=== PATIENT | female | born 1945 | race Caucasian/White ===

== ENCOUNTER 2016-12-12 05:53 | Inpatient (IN) | payer MEDICARE ==
--- NOTE | 2016-12-04 15:50 | HP ---
HISTORY AND PHYSICAL: DATE OF ADMISSION: 12/12/16 She will be entering [facility] on 12/12/16 for a left total hip replacement. CHIEF COMPLAINT: Left hip region pain. HISTORY OF PRESENT ILLNESS: The patient has had progressive symptoms from arthritis of her left hip and the left hip severe arthritis has been no longer responsive to nonoperative care and a left total hip replacement has been recommended. In the office, I reviewed the goals, risks and complications of the surgical care with her and her questions were answered. PAST SURGICAL HISTORY: Gallbladder removal and a partial hysterectomy. She has had 2 cataract surgeries, the last in 2008. ALLERGIES: No drug allergies. SOCIAL HISTORY: She has never been a smoker. She does not drink. No bleeding tendencies. No past history of heart attack or chest pain. The patient is able to walk up 2 flights of stairs without chest pain and without shortness of breath. The patient did have pneumonia last year. No chronic bronchitis. No kidney problems. No past cancers and no liver problems. Currently antalgic gait on the left. PHYSICAL EXAMINATION VITAL SIGNS: Temperature is 97.9, blood pressure 122/78. Weight 113 and height 65 inches. HEENT: Head is NC/AT. LUNGS: Clear bilaterally. HEART: Regular. S1, S2 normal. No murmurs or gallops. ABDOMEN: Soft and nontender. There is no organomegaly. EXTREMITIES: The left hip examination shows painful range of movement and neurovascular left foot is intact. The radiographs show severe arthritis of the left hip with onxq-tq-pyul sclerosis, osteophyte formation, and cyst formation. NEUROLOGIC: The cranial nerves are grossly intact. IMPRESSION: Severe arthritis of the left hip. PLAN: Left total hip replacement. [id number]/[facility] #: [id number] [facility]
[~2016-12-12 05:53] MED LIST: Buffered Lidocaine 0.9% SYRIN* 5 ML/SYR SYRINGE INTRADERM ONE
[2016-12-12] MEDS ORDERED: ceFAZolin 2 GM PREMIX (*) 50 ML IVPB ONE (05:55)
[2016-12-12] MEDS ORDERED: Buffered Lidocaine 0.9% SYRIN* 5 ML/SYR SYRINGE ONE (05:55)
[2016-12-12] MEDS ORDERED: fentaNYL* 50 MCG/ML 2 ML VIAL (100 MCG VIAL) ONE (07:31)
[2016-12-12] MEDS ORDERED: Midazolam* 1 MG/ML 5 ML VIAL (5 MG) ONE (07:31)
[2016-12-12] MEDS ORDERED: Morphine PF AMP (0.5MG/ML)* 5 MG/10 ML AMP ONE (07:32)
[2016-12-12] MEDS ORDERED: Scopolamine 1.5 mg* PATCH ONE (07:35)
[2016-12-12] MEDS ORDERED: diPHENhydraMINE IV* 50 MG/ML 1 ml VIAL (BENADRYL) IV PRN (09:36)
[2016-12-12] MEDS ORDERED: Nalbuphine* 20 MG/ML 1 ML VIAL IV PRN (09:36)
[2016-12-12] MEDS ORDERED: Ondansetron INJ* 2 MG/ML VIAL IV PRN (09:37)
[2016-12-12] MEDS ORDERED: Naloxone* 0.4 MG/ML 1 ML VIAL IV PRN (09:37)
[2016-12-12] MEDS ORDERED: Metoclopramide IV* 5 MG/ML 2 ML VIAL IV PRN (09:37)
[2016-12-12] MEDS ORDERED: Acetaminophen TAB* 325 MG PO PRN (09:37)
[2016-12-12] MEDS ORDERED: oxyCODONE/Acetamin 5/325 MG* TAB PO PRN (09:37)
[2016-12-12] MEDS ORDERED: Scopolomine PATCH Remove* 1 NOTE MISC PATCH OFF PRN (09:37)
[2016-12-12] MEDS ORDERED: PROCHLORPERAZINE INJ 5 MG/ML 2 ML VIAL IV PRN (09:37)
[2016-12-12] MEDS ORDERED: Ondansetron INJ* 2 MG/ML VIAL ONE (10:04)
[2016-12-12] MEDS ORDERED: Propofol* 10 MG/ML 20 ML BTL IV PUSH ONE (10:04)
[2016-12-12] MEDS ORDERED: Bisacodyl SUPP* 10 MG SUPP PR PRN (10:18)
[2016-12-12] MEDS ORDERED: diPHENhydraMINE PO* 25 MG PO PRN (10:18)
[2016-12-12] MEDS ORDERED: Magnesium Hydroxide LIQ* 30 ML UDC PO PRN (10:18)
[2016-12-12] MEDS ORDERED: ceFAZolin 1 GM VIAL(*) 1 GM in NS 0.9% 50 ML* 50 ML IVPB SCH (11:00)
--- NOTE | 2016-12-12 11:28 | RAD ---
INDICATION: Status post total left hip replacement surgery. COMPARISON: Comparison is made with a prior x-ray study of the left hip from April 15, 2016. TECHNIQUE: An AP view of the pelvis was obtained. FINDINGS: The patient is status post total left hip replacement surgery. The bones and prostheses are in normal alignment. There is air in the surrounding soft tissues and several surgical oleksandr present laterally consistent with the patient's recent surgery. The patient is status post remote total right hip replacement surgery. IMPRESSION: STATUS POST TOTAL LEFT HIP REPLACEMENT SURGERY.
[2016-12-12] MEDS ORDERED: PROCHLORPERAZINE INJ 5 MG/ML 2 ML VIAL ONE (11:38)
[2016-12-12] MEDS ORDERED: Glycopyrrolate IV* 0.2 MG/ML 1 ML VIAL ONE (13:31)
[2016-12-12 13:32] LABS: Albumin 3.7 g/dL (3.2-5.2); BUN/Creatinine Ratio 26.7 (8-20); EGFR African American 126.4 (>60); EGFR Non-African American 98.3 (>60); Globulin 2.4 g/dL (2-4); Magnesium 1.8 mg/dL (1.9-2.7); Phosphorus 3.1 mg/dL (2.5-5.0); Total Bilirubin 0.4 mg/dL (0.2-1.0); Total Protein 6.1 g/dL (6.4-8.9)
[2016-12-12 13:53] LABS: Potassium 2.7 mmol/L (3.5-5.0)
[2016-12-12 13:58] LABS: Hematocrit 37 % (35-47); Hemoglobin 12.3 g/dl (12.0-16.0)
[2016-12-12] MEDS ORDERED: Magnesium Sulfate 2 GM IV* 2 GM/50 ML BAG IVPB ONE (13:58)
[2016-12-12] MEDS: KCL 20 MEQ/100 ML IVPREMIX* 20 MEQ/100 ML BAG IV SCH ×3 (14:56→19:05)
[2016-12-12] MEDS: Cyclobenzaprine TAB* 10 MG PO SCH ×2 (16:53→22:04)
[2016-12-12] MEDS ORDERED: AMLODIPINE BESYLATE 10 MG PO SCH (17:00)
[2016-12-12] MEDS: ceFAZolin 1 GM in Dextrose (*) 1 GM/50 ML BAG IVPB SCH (17:42)
--- NOTE | 2016-12-12 18:07 | CONS ---
CC: Dr. Ernandez; Dr. Soriano * CONSULTATION REPORT: DATE OF CONSULT: 12/12/16 REASON FOR CONSULT: 1. Evaluation of bradycardia. 2. Hypertension. HISTORY OF PRESENT ILLNESS: Ms. Craven is a 71-year-old female patient that presented to the orthopedic services today for an elective left total hip replacement. I refer you to Dr. Soriano's H and P for further details. She has been plagued by left hip pain for some time, failing conservative therapy, she sought care with Dr. Soriano and it was felt that she would benefit from a total hip replacement, which she underwent today. Unfortunately, in the PACU, it was noted that she was having significant episodes of bradycardia associated with nausea and vomiting. She did have a scopolamine patch placed preoperatively and she has had it intraop. In addition to this, though, it is hard to tell if she is becoming bradycardic and then having nausea and vomiting or if she has been vasovagal. She had an episode in front of me and I talked to the patient. She denied having any chest pain, but she did state that she was feeling nausea and her heart rate was in the 30s. She denied having any feeling like she was going to faint. She denied having any lightheadedness. Denied having any syncope. She denied having any palpitations again or having any chest discomfort or chest pain or shortness of breath associated with these episodes. Because of the bradycardia, we were asked to evaluate in consult. PAST MEDICAL HISTORY: Significant for: 1. Hypertension. 2. Hyperlipidemia. PAST SURGICAL HISTORY: 1. She has had a laparoscopic cholecystectomy. 2. Cataract extraction. 3. Hysterectomy. 4. Right total hip replacement. MEDICATIONS: Her home meds according to her preop list include: 1. Tylenol 650 mg p.o. b.i.d. as needed. 2. Norvasc 10 mg daily. 3. Vitamin D 1000 units p.o. daily. 4. B12 1000 mcg p.o. daily. 5. Flexeril 10 mg p.o. t.i.d. 6. Diphenhydramine 50 mg p.o. at bedtime as needed. 7. Colace 1 capsule p.o. daily. 8. Dyazide 1 capsule p.o. daily. 9. Excedrin Headache 1 capsule daily. 10. Fish oil 1 capsule daily. 11. Advil 600 mg daily as needed. 12. Magnesium 250 mg p.o. daily. 13. Melatonin 10 mg p.o. at bedtime. 14. Potassium 595 mg p.o. daily. 15. Probiotic 1 capsule p.o. daily. 16. Red yeast rice 600 mg a day. 17. Gas-X 125 mg daily as needed. 18. Aspercreme 1 application topically every 6 hours. 19. Multivitamin 1 tablet a day. 20. Tramadol 1 to 2 tablets at bedtime as needed. ALLERGIES TO MEDICATIONS: Include no known drug allergies. FAMILY HISTORY: Her mother had a history of IBS and she also had a pacemaker placed. Her father's history was reviewed, noncontributory. She denied having any heart disease in her father or cerebrovascular disease. SOCIAL HISTORY: She does not smoke. She does not drink. Surrogate decision maker is her daughter, Ricarda. REVIEW OF SYSTEMS: There is no documented fever. She denies having any significant weight change. No double vision. There is no ear discharge. She denied having any rhinorrhea. No sore throat, no thyroid enlargement. Denies again having any chest pain. There is no orthopnea, no nocturnal dyspnea. She denies any abdominal pain. There was nausea and vomiting. No dysuria, no frequency. No loss of consciousness. No pruritus, and no skin ulcerations. Review of 14 systems completed, all others negative. PHYSICAL EXAM: Vital Signs: Blood pressure 148/82, pulse 92, respirations 14, O2 sat 97%, temperature 97.5. General: At this time, Mrs. Craven is a 71-year- old female patient. She is sitting in the PACU bed. She does not appear to be in any acute distress. She appears to be well nourished, well developed. HEENT : Head atraumatic. Eyes: Sclerae anicteric. Neck: Supple. Throat: Oral mucosa appears to be dry. No oropharyngeal erythema. Heart: Sounds, S1, S2. Regular rate and rhythm. No murmurs, rubs, or gallops. Lungs: Clear to auscultation. No wheezes, rales, or rhonchi. Abdomen: Soft, flat, nontender. Bowel sounds present. Extremities: Pulses 2+ throughout. She moves upper extremities with 5/5 strength. She cannot move the lower extremities as she is in a hip adductor pillow. Distal CSM checks are intact. Skin is intact with the exception that she has an incision to the left hip, which is covered with a dressing. It is clean, dry, and intact. DIAGNOSTIC STUDIES/LAB DATA: She had some postop labs. Her hemoglobin is 12.3 , hematocrit 37. Sodium 138, potassium 2.7, chloride 102, bicarb 29, BUN 16, creatinine of 0.60, glucose 155, calcium 9, mag 1.8, phos 3.1, total bilirubin 0.4, AST 22, ALT , alk phos 55. Albumin 3.7. She did have an EKG postop as well. It shows a sinus bradycardia, rate of 55. No ST elevations or T-wave inversions were noted. No signs of acute ischemia. She had an EKG about a week ago and the heart rate was 60 with a PVC at that point. Old medical records were reviewed. ASSESSMENT AND PLAN: Ms. Craven is a 71-year-old female patient coming into the orthopedic services today for an elective total hip replacement, we were asked to evaluate in consult. Recommendations at this point are: 1. Status post right total hip replacement, defer the management to Dr. Soriano and his team. 2. Bradycardia. Etiology is unclear. She does not appear to have a second- degree or third-degree AV block at this point. Appears to be sinus rolando. She does become nauseous I think with this or because she may be having vasovagal. She has a scopolamine patch which can increase vagal tone, so I did discontinue that. I would like to keep her on telemetry and continue to observe her, her blood pressure maintained. She does not pass out with these episodes. She does not have any chest pain. I will cycle her troponins. I would like to try to get an EKG when she has one of these episodes if possible and follow her closely. I do think she deserves the ICU and if she continues to have the episodes, we may need to consider low threshold for cardiology input, but for now it could just be related to anesthetics and medication related. Hopefully by holding these meds and as the anesthetic wears off, this does improve. We will monitor. 3. Hypokalemia and hypomagnesemia. I am going to replace her potassium and her mag. Try to get the potassium around 4 and try to get the mag up to 2. 4. Hypertension. I am going to hold her meds, particularly her Dyazide. We will hold some of the Norvasc and restart this when able. 5. Hyperlipidemia. We will restart the meds when able. 6. DVT prophylaxis: Defer to the primary team. 7. Fluids, electrolytes, nutrition. I would recommend a regular diet. 8. Code status. Full code. TIME SPENT: On consult was 60 minutes, greater than half the time was spent face- to-face with the patient obtaining my history and physical, other half the time spent going over the plan of care with the patient and implementing plan of care. I did discuss the plan of care with my attending, Dr. Lorenz, she is in agreement. RAHUL MENDIETA, BEULAH [id number]/[facility] #: [id number] MTDD
[2016-12-12] MEDS: Docusate CAP* 100 MG PO SCH (22:04)
[2016-12-12 23:14] LABS: Calcium 8.3 mg/dL (8.6-10.3); EGFR Non-African American 121.3 (>60); Magnesium 2.1 mg/dL (1.9-2.7); Potassium 3.9 mmol/L (3.5-5.0)
[2016-12-13] MEDS: ceFAZolin 1 GM in Dextrose (*) 1 GM/50 ML BAG IVPB SCH ×2 (00:32→09:08)
--- NOTE | 2016-12-13 01:04 | OP ---
CC: Dr. David Ernandez, [facility] * DATE OF OPERATION: 12/12/16 - ROOM #444 DATE OF : 43 SURGICAL CARE: Left hip. SURGEON: Rojelio Soriano MD ASSISTANTS: 1. JONNY Cosby, him assistant. 2. Cristiane Bautista, surgical scrub tech. ANESTHESIOLOGIST: Marlyn Roblero MD ANESTHESIA: Spinal with IV sedation. PRE-OP DIAGNOSIS: Severe arthritis of the left hip. POST-OP DIAGNOSIS: Severe arthritis of the left hip. OPERATIVE PROCEDURE: Left total hip replacement. INDICATIONS: Severe arthritis of the left hip that has been no longer responsive to nonoperative care and a left total hip replacement was recommended. COMPONENTS UTILIZED: Ángel Continuum cup was utilized 52-mm outer diameter with 1 screw, the liner was elevated and the elevation was placed posteriorly. The liner is for a 36-mm head. On the femoral side, standard M/L taper size 11 with a +0, 36- mm cobalt-chrome head. COMPLICATIONS: There were no complications. DRAINS: There were no drains. ESTIMATED BLOOD LOSS: 200 mL. REPLACEMENT: Crystalloid fluids. DESCRIPTION OF PROCEDURE: The patient was brought to the operating room. The patient was placed on the operating room table in the seated position for administration of spinal anesthetic, she returned to the supine position. A Clark catheter was inserted, she was placed in the right lateral position with a folded blanket under the right greater trochanter. The pelvis was secured over the ASIS and the sacrum using the hip positioner. Care was taken to seal, there was no pressure on the peroneal nerve on the downside right leg. The groin was sealed off. The left hip was given a preliminary chlorhexidine prep and then the final ChloraPrep from the left hip to the foot. After prepping, draping, and sealing off, we did our universal protocol time-out confirming Nona Herber and the plan for left total hip replacement. We all agreed and we proceeded. The left hip was approached with a slightly curving posterolateral skin incision, going from the greater trochanter distally for an inch and a half and curving a little bit proximally and posterior for 2-1/2 to 3 inches. Skin and subcu was divided and careful hemostasis checked and achieved throughout the case utilizing electrocautery. The deep fascia was opened in line with the skin incision, dividing the fascia beverly over the greater trochanter and then the fascia gluteus fili going proximally. A Charnley retractor was carefully inserted, the greater trochanter was identified and soft tissues were scrubbed posteriorly posterior to the greater trochanter. A blunt Hohmann retractor was placed under the gluteus medius and the piriformis and conjoint tendons were identified and carefully released from their piriformis fossa insertions, each was marked with a separate #2 Surgidac suture and this stitch also included the underlying capsular flap. Careful hemostasis was achieved during the careful posterior approach to the hip. The hip was dislocated without difficulty. There were large osteophytes posterior, superior, anteriorly on the acetabulum. A large medial osteophyte completely overgrew the fossa and this was excised with osteotomes, retractors were sharp Hohmann's anteriorly and posteriorly, blunt Hohmann's superiorly and inferiorly. Once the acetabulum was nicely exposed, we reamed 44 through 52 in 2 -mm increments. At 52, we had nice bleeding subchondral and cancellous bone. A 50 trial was very satisfactory. A 52 Continuum cup was impacted into position after cleaning the acetabulum several times with pulsed saline. The new cup was impacted in 45 degrees of abduction and approximately 20 degrees of anteversion with nice posture and tight fit. A single screw was placed superiorly and an elevator liner for a 36 head was placed posteriorly. I then removed the anterior osteophyte from the acetabulum and some anterior inferior osteophyte as well. The acetabulum was packed and on the femoral side, we used a canal finder, trochanteric reamer, broaching was done 5 through 11, at 11, we had a nice tight fit but for rotation and axial, a trial reduction was done with a +0 standard neck and negative push pull and good soft tissue tension. No tendency towards levering with IR and ER in extension. 90 degrees of flexion was allowed with abduction and internal rotation, approaching 30 to 40 degrees prior to dislocation. The femoral canal was cleaned times several with saline, suctioned out. The standard M/L taper size 11 was opened and inserted in 15 to 20 degrees of anteversion and the trunnion was cleaned and a +0 36-mm head was then applied and impacted carefully. The hip was reduced with nice soft tissue tension. The piriformis and conjoint tendons were reapproximated through 2 drill holes to the posterior superior greater trochanter. Prior to tightening this, we irrigated several times with saline and swabbed the soft tissues to discourage leaving debris with clean lap sponges. After obtaining careful hemostasis and cleansing, the piriformis and conjoint tendons tightened through 2 drill holes to the posterior superior greater trochanter. The fascia beverly reapproximated with interrupted #1 Polysorb in figure-of-8 fashion. The same with the fascia gluteus fili. The deep and superficial subcu closed with 0 and then 2-0 Polysorb and then oleksandr on the skin. The skin was closed with oleksandr. The skin was washed and dried and covered with Betadine-soaked release, followed by sterile gauze, an ABD pad, and then paper tape carefully applied. The patient was returned to the hospital bed and to the recovery room in stable and satisfactory condition, having tolerated the procedure very well. [id number]/[facility] #: [id number] MICKEY
[2016-12-13] MEDS ORDERED: Acetaminophen TAB* 325 MG PO PRN (01:38)
[2016-12-13] MEDS ORDERED: oxyCODONE/Acetamin 5/325 MG* TAB PO PRN (01:38)
[2016-12-13] MEDS ORDERED: Ondansetron INJ* 2 MG/ML VIAL IV PRN (01:38)
[2016-12-13] MEDS ORDERED: Cyanocobalamin TAB* 500 MCG PO SCH (04:30)
[2016-12-13] MEDS ORDERED: DYAZIDE PO SCH (04:30)
[2016-12-13] MEDS ORDERED: Cholecalciferol TAB* 1000 UNITS PO SCH (04:30)
[2016-12-13 05:15] LABS: Hematocrit 31 % (35-47); Hemoglobin 10.5 g/dl (12.0-16.0)
[2016-12-13 05:32] LABS: BUN/Creatinine Ratio 22.9 (8-20); Calcium 8.4 mg/dL (8.6-10.3); EGFR African American 163.5 (>60); EGFR Non-African American 127.1 (>60); Potassium 3.3 mmol/L (3.5-5.0)
[2016-12-13] MEDS ORDERED: Morphine INJ* 4 MG/ML 1 ML CARPUJECT IV PRN (06:00)
[2016-12-13] MEDS: Aspirin TAB* 325 MG PO SCH (07:55)
[2016-12-13] MEDS: oxyCODONE/Acetamin 5/325 MG* TAB PO PRN ×3 (07:55→19:32)
[2016-12-13] MEDS: Cyclobenzaprine TAB* 10 MG PO SCH ×3 (07:55→22:42)
[2016-12-13] MEDS: Docusate CAP* 100 MG PO SCH ×2 (07:55→19:32)
[2016-12-13] MEDS ORDERED: Influenza VAC *QUAD* 2017-18* 0.5 ML SYRINGE IM ONE (09:00)
--- NOTE | 2016-12-13 11:16 | PN ---
Progress Note - Progress Note Date of Service: 12/13/16 SOAP: Subjective: Pt resting comfortably in chair. No complaints today. Objective: Dressing clean and dry. Calves soft, nontender. DP pulses 2+. Sensation intact. Vital Signs: Temp Pulse Resp BP Pulse Ox 98.6 F 93 16 119/53 94 12/13/16 07:17 12/13/16 07:17 12/13/16 08:00 12/13/16 07:17 12/13/16 07:17 Laboratory Last Values Hgb 10.5 g/dl (12.0-16.0) L 12/13/16 04:36 Hct 31 % (35-47) L 12/13/16 04:36 Sodium 133 mmol/L (133-145) 12/13/16 04:36 Potassium 3.3 mmol/L (3.5-5.0) L 12/13/16 04:36 Chloride 99 mmol/L (101-111) L 12/13/16 04:36 Carbon Dioxide 32 mmol/L (22-32) 12/13/16 04:36 Anion Gap 2 mmol/L (2-11) 12/13/16 04:36 BUN 11 mg/dL (6-24) 12/13/16 04:36 Creatinine 0.48 mg/dL (0.51-0.95) L 12/13/16 04:36 Est GFR ( Amer) 163.5 (>60) 12/13/16 04:36 Est GFR (Non-Af Amer) 127.1 (>60) 12/13/16 04:36 BUN/Creatinine Ratio 22.9 (8-20) H 12/13/16 04:36 Glucose 111 mg/dL (70-100) H 12/13/16 04:36 Calcium 8.4 mg/dL (8.6-10.3) L 12/13/16 04:36 Phosphorus 3.1 mg/dL (2.5-5.0) 12/12/16 12:55 Magnesium 2.1 mg/dL (1.9-2.7) 12/12/16 22:50 Total Bilirubin 0.40 mg/dL (0.2-1.0) 12/12/16 12:55 AST 22 U/L (13-39) 12/12/16 12:55 ALT 16 U/L (7-52) 12/12/16 12:55 Alkaline Phosphatase 55 U/L (34-104) 12/12/16 12:55 Troponin I 0.00 ng/mL (<0.04) 12/12/16 16:20 Total Protein 6.1 g/dL (6.4-8.9) L 12/12/16 12:55 Albumin 3.7 g/dL (3.2-5.2) 12/12/16 12:55 Globulin 2.4 g/dL (2-4) 12/12/16 12:55 Albumin/Globulin Ratio 1.5 (1-3) 12/12/16 12:55 Assessment: 71yo female s/p left ELI POD#1 Plan: PT/OT - WBAT, Hip precautions Pain control ASA/SCDs for DVT prophylaxis
[2016-12-13] MEDS: Potassium Chlor TAB* 20 MEQ TAB.ER PO SCH ×2 (13:21→16:23)
--- NOTE | 2016-12-13 16:11 | PN ---
Subjective Date of Service: 12/13/16 Interval History: Patient seen and examined at bedside. Patient denies any further episodes of dizziness. Patient states she felt a little dizzy when she got up for the first time today but has now improved. On telemetry her rate has remained in the 80s. She had a 2-3 1-2 sec pauses. The patient states that she knows she has pauses. Pain controlled. Family History: Unchanged from Admission Social History: Unchanged from Admission Past Medical History: Unchanged from Admission Objective Active Medications: Acetaminophen (Tylenol Tab*) 650 mg PO Q4H PRN Aspirin (Aspirin Tab*) 325 mg PO DAILY ARNULFO Bisacodyl (Dulcolax Supp*) 10 mg MI DAILY PRN Cholecalciferol (Vitamin D Tab*) 1,000 units PO 0430 ARNULFO Cyanocobalamin (Vitamin B12 Tab*) 1,000 mcg PO 0430 ARNULFO Cyclobenzaprine HCl (Flexeril Tab*) 10 mg PO TID ARNULFO Diphenhydramine HCl (Benadryl Po*) 25 mg PO Q6H PRN Docusate Sodium (Colace Cap*) 100 mg PO BID ARNULFO Lactulose (Lactulose*) 30 ml PO Q6H PRN Magnesium Hydroxide (Milk Of Magnesia Liq*) 30 ml PO Q6H PRN Morphine Sulfate (Morphine Inj (Syringe)*) 2 mg IV Q2H PRN Ondansetron HCl (Zofran Inj*) 4 mg IV Q6H PRN Oxycodone/Acetaminophen (Percocet 5/325 Tab*) 1 tab PO Q3H PRN Oxycodone/Acetaminophen (Percocet 5/325 Tab*) 2 tab PO Q3H PRN Pharmacy Profile Note (Scopolomine Patch Remove*) 1 note PATCH OFF .AFTER 72 HOURS PRN Potassium Chloride (Klor Con Er Tab*) 20 meq PO Q4H [facility] Vital Signs 12/12/16 12/12/16 12/12/16 16:00 16:15 16:30 Temperature 98.5 F Pulse Rate 64 74 63 Respiratory 16 16 18 Rate Blood Pressure 138/67 145/67 132/67 (mmHg) O2 Sat by Pulse 99 99 99 Oximetry 12/12/16 12/12/16 12/12/16 16:45 17:00 17:03 Temperature Pulse Rate 63 81 Respiratory 23 21 Rate Blood Pressure 130/66 138/82 (mmHg) O2 Sat by Pulse 97 97 99 Oximetry 12/12/16 12/12/16 12/12/16 17:15 17:24 17:31 Temperature Pulse Rate 74 111 74 Respiratory 17 22 19 Rate Blood Pressure 144/75 147/86 143/71 (mmHg) O2 Sat by Pulse 97 97 97 Oximetry 12/12/16 12/12/16 12/12/16 17:45 18:00 18:15 Temperature Pulse Rate 68 69 70 Respiratory 24 20 16 Rate Blood Pressure 134/64 128/72 146/67 (mmHg) O2 Sat by Pulse 97 99 97 Oximetry 12/12/16 12/12/16 12/12/16 18:30 18:45 18:46 Temperature Pulse Rate 66 65 Respiratory 19 14 13 Rate Blood Pressure 130/72 141/67 (mmHg) O2 Sat by Pulse 98 98 Oximetry 12/12/16 12/12/16 12/12/16 19:00 19:15 19:30 Temperature Pulse Rate 79 69 69 Respiratory 14 14 16 Rate Blood Pressure 143/73 135/64 129/65 (mmHg) O2 Sat by Pulse 97 98 99 Oximetry 12/13/16 12/13/16 12/13/16 08:00 09:55 11:06 Temperature 98.1 F Pulse Rate 80 Respiratory 16 16 18 Rate Blood Pressure 107/53 (mmHg) O2 Sat by Pulse 95 Oximetry Oxygen Devices in Use Now: None Appearance: sitting up in bed, NAD Eyes: No Scleral Icterus, PERRLA Ears/Nose/Mouth/Throat: NL Teeth, Lips, Gums Neck: NL Appearance and Movements; NL JVP Respiratory: Symmetrical Chest Expansion and Respiratory Effort, Clear to Auscultation Cardiovascular: NL Sounds; No Murmurs; No JVD, RRR Abdominal: NL Sounds; No Tenderness; No Distention Extremities: No Edema Skin: - - Left hip dressing C/D/I Neurological: Alert and Oriented x 3 Lines/Tubes/Other Access: Clean, Dry and Intact Peripheral IV Nutrition: Taking PO's Result Diagrams: 12/13/16 04:36 12/13/16 04:36 Microbiology and Other Data: Microbiology 12/12/16 17:20 Nasal Screen MRSA (PCR)([facility]) - Final Nasal Mrsa Negative Assess/Plan/Problems-Billing Assessment: - Patient Problems (1) Status post left hip replacement Comment: Management per orthopedic surgery. Pain control. PT/OT. H/H stable. (2) Bradycardia Comment: Resolved; D/c telemetry (3) HTN (hypertension) Comment: Hold Norvasc and Dyazide until BP stabilizes (4) HLD (hyperlipidemia) Comment: Restart statin. (5) DVT prophylaxis Comment: ASA and SCDs (6) Full code status Status and Disposition: Inpatient for left hip replacement. Dispo per orthopedic surgery.
[2016-12-14 07:20] LABS: Hematocrit 29 % (35-47); Hemoglobin 9.7 g/dl (12.0-16.0)
[2016-12-14] MEDS ORDERED: HYDROcodone/ACETAMIN 5-325 MG* 1 TAB PO PRN (07:48)
[2016-12-14] MEDS: Docusate CAP* 100 MG PO SCH ×2 (08:11→22:54)
[2016-12-14] MEDS: Cyanocobalamin TAB* 500 MCG PO SCH (08:11)
[2016-12-14] MEDS: Cyclobenzaprine TAB* 10 MG PO SCH ×3 (08:11→22:54)
[2016-12-14] MEDS: Cholecalciferol TAB* 1000 UNITS PO SCH (08:13)
[2016-12-14] MEDS: Aspirin TAB* 325 MG PO SCH (08:13)
--- NOTE | 2016-12-14 08:31 | PN ---
Progress Note - Progress Note Date of Service: 12/14/16 SOAP: Subjective: patient resting comfortably; pain controlled with with current pain regimen Objective: Vital Signs Temp Pulse Resp BP Pulse Ox 98.7 F 83 16 164/67 94 12/14/16 03:27 12/14/16 03:27 12/14/16 08:11 12/14/16 03:27 12/14/16 03:55 Laboratory Last Values Hgb 9.7 g/dl (12.0-16.0) L 12/14/16 06:50 Hct 29 % (35-47) L 12/14/16 06:50 Sodium 133 mmol/L (133-145) 12/13/16 04:36 Potassium 3.3 mmol/L (3.5-5.0) L 12/13/16 04:36 Chloride 99 mmol/L (101-111) L 12/13/16 04:36 Carbon Dioxide 32 mmol/L (22-32) 12/13/16 04:36 Anion Gap 2 mmol/L (2-11) 12/13/16 04:36 BUN 11 mg/dL (6-24) 12/13/16 04:36 Creatinine 0.48 mg/dL (0.51-0.95) L 12/13/16 04:36 Est GFR ( Amer) 163.5 (>60) 12/13/16 04:36 Est GFR (Non-Af Amer) 127.1 (>60) 12/13/16 04:36 BUN/Creatinine Ratio 22.9 (8-20) H 12/13/16 04:36 Glucose 111 mg/dL (70-100) H 12/13/16 04:36 Calcium 8.4 mg/dL (8.6-10.3) L 12/13/16 04:36 Phosphorus 3.1 mg/dL (2.5-5.0) 12/12/16 12:55 Magnesium 2.0 mg/dL (1.9-2.7) 12/13/16 04:36 Total Bilirubin 0.40 mg/dL (0.2-1.0) 12/12/16 12:55 AST 22 U/L (13-39) 12/12/16 12:55 ALT 16 U/L (7-52) 12/12/16 12:55 Alkaline Phosphatase 55 U/L (34-104) 12/12/16 12:55 Troponin I 0.00 ng/mL (<0.04) 12/12/16 16:20 Total Protein 6.1 g/dL (6.4-8.9) L 12/12/16 12:55 Albumin 3.7 g/dL (3.2-5.2) 12/12/16 12:55 Globulin 2.4 g/dL (2-4) 12/12/16 12:55 Albumin/Globulin Ratio 1.5 (1-3) 12/12/16 12:55 incision: c/d; dressing changed PE: NVI Assessment: s/p left ELI; POD#2 Plan: 1) pt/ot- wbat 2) ASA/SCD'S for DVT prophyalxis 3) Medicine co-managing 4) likely home Sunday
[2016-12-14] MEDS: HYDROcodone/ACETAMIN 5-325 MG* 1 TAB PO PRN ×3 (09:25→18:42)
[2016-12-14 14:31] LABS: Calcium 8.8 mg/dL (8.6-10.3); EGFR Non-African American 121.3 (>60); Potassium 3.4 mmol/L (3.5-5.0)
[2016-12-14] MEDS ORDERED: Potassium Chlor TAB* 20 MEQ TAB.ER PO ONE (17:19)
--- NOTE | 2016-12-14 17:23 | PN ---
Subjective Date of Service: 12/14/16 Interval History: Patient seen this afternoon. Reports feeling well overall. Pain controlled. Had BM today. Good PO intake. No chest pain, SOB, dysuria. Family History: Unchanged from Admission Social History: Unchanged from Admission Past Medical History: Unchanged from Admission Objective Active Medications: Acetaminophen (Tylenol Tab*) 650 mg PO Q4H PRN PRN Reason: Pain and temp Hydrocodone Bitart/Acetaminophen ([place] 5-325 Tab*) 1 tab PO Q3H PRN PRN Reason: PAIN Last Admin: 12/14/16 13:13 Dose: 1 tab Hydrocodone Bitart/Acetaminophen ([place] 5-325 Tab*) 2 tab PO Q3H PRN PRN Reason: MORE SEVERE PAIN Aspirin (Aspirin Tab*) 325 mg PO DAILY [facility] Last Admin: 12/14/16 08:13 Dose: 325 mg Bisacodyl (Dulcolax Supp*) 10 mg [place] DAILY PRN PRN Reason: constipation Cholecalciferol (Vitamin D Tab*) 1,000 units PO 0900 [facility] Last Admin: 12/14/16 08:13 Dose: 1,000 units Cyanocobalamin (Vitamin B12 Tab*) 1,000 mcg PO 0900 [facility] Last Admin: 12/14/16 08:11 Dose: 1,000 mcg Cyclobenzaprine HCl (Flexeril Tab*) 10 mg PO TID [facility] Last Admin: 12/14/16 13:12 Dose: 10 mg Diphenhydramine HCl (Benadryl Po*) 25 mg PO Q6H PRN PRN Reason: itching Docusate Sodium (Colace Cap*) 100 mg PO BID [facility] Last Admin: 12/14/16 08:11 Dose: 100 mg Lactulose (Lactulose*) 30 ml PO Q6H PRN PRN Reason: constipation Magnesium Hydroxide (Milk Of Magnesia Liq*) 30 ml PO Q6H PRN PRN Reason: constipation Last Admin: 12/13/16 19:33 Dose: 30 ml Morphine Sulfate (Morphine Inj (Syringe)*) 2 mg IV Q2H PRN PRN Reason: SEVERE PAIN Ondansetron HCl (Zofran Inj*) 4 mg IV Q6H PRN PRN Reason: nausea Pharmacy Profile Note (Scopolomine Patch Remove*) 1 note PATCH OFF .AFTER 72 HOURS PRN PRN Reason: nausea Stop: 12/15/16 09:39 Last Admin: 12/12/16 14:23 Dose: 1 patch Vital Signs 12/13/16 12/13/16 12/13/16 18:21 18:35 18:41 Temperature 98.7 F 98.7 F Pulse Rate 87 87 Respiratory 14 16 16 Rate Blood Pressure 142/62 142/62 (mmHg) O2 Sat by Pulse 99 99 Oximetry 12/14/16 12/14/16 12/14/16 03:27 03:55 07:35 Temperature 98.7 F Pulse Rate 83 Respiratory 18 16 Rate Blood Pressure 164/67 (mmHg) O2 Sat by Pulse 94 94 95 Oximetry 12/14/16 12/14/16 12/14/16 10:11 11:25 11:50 Temperature 97.7 F Pulse Rate 99 Respiratory 16 16 18 Rate Blood Pressure 119/52 (mmHg) O2 Sat by Pulse 93 Oximetry 12/14/16 12/14/16 12/14/16 13:12 13:13 15:50 Temperature 98.0 F Pulse Rate 106 Respiratory 16 16 16 Rate Blood Pressure 133/62 (mmHg) O2 Sat by Pulse 97 Oximetry Oxygen Devices in Use Now: None Appearance: Elderly, F, sitting in chair in NAD Eyes: No Scleral Icterus Ears/Nose/Mouth/Throat: Mucous Membranes Moist Neck: NL Appearance and Movements; NL JVP Respiratory: Symmetrical Chest Expansion and Respiratory Effort, Clear to Auscultation Cardiovascular: NL Sounds; No Murmurs; No JVD, RRR Abdominal: NL Sounds; No Tenderness; No Distention Lymphatic: No Cervical Adenopathy Extremities: - - L hip with dressing in place, did not take down Skin: No Rash or Ulcers Neurological: Alert and Oriented x 3 Result Diagrams: 12/14/16 06:50 12/14/16 13:24 Microbiology and Other Data: Microbiology 12/12/16 17:20 Nasal Screen MRSA (PCR)([facility]LEY) - Final Nasal Mrsa Negative Assess/Plan/Problems-Billing Assessment: - Patient Problems (1) Status post left hip replacement Current Visit: Yes Comment: Management per orthopedic surgery. Pain control. PT/OT. H/H stable. (2) Bradycardia Current Visit: Yes Comment: Resolved (3) HTN (hypertension) Current Visit: Yes Comment: BPs in good range off of PO meds. Continue to hold Norvasc and Dyazide for now. (4) HLD (hyperlipidemia) Current Visit: Yes Status: Acute Code(s): E78.5 - HYPERLIPIDEMIA, UNSPECIFIED SNOMED Code(s): 02042723 Comment: Can resume red yeast rice on d/c (5) DVT prophylaxis Current Visit: Yes Comment: ASA and SCDs Status and Disposition: Inpatient for left hip replacement. Dispo per orthopedic surgery, seems like d/ c likely 12/15
[2016-12-15 07:00] LABS: Hematocrit 27 % (35-47); Hemoglobin 9.3 g/dl (12.0-16.0)
[2016-12-15] MEDS: Cyanocobalamin TAB* 500 MCG PO SCH (08:32)
[2016-12-15] MEDS: Docusate CAP* 100 MG PO SCH (08:33)
[2016-12-15] MEDS: Cholecalciferol TAB* 1000 UNITS PO SCH (08:33)
[2016-12-15] MEDS: Cyclobenzaprine TAB* 10 MG PO SCH ×2 (08:33→14:43)
[2016-12-15] MEDS: HYDROcodone/ACETAMIN 5-325 MG* 1 TAB PO PRN ×2 (08:33→14:45)
[2016-12-15] MEDS: Aspirin TAB* 325 MG PO SCH (08:34)
[2016-12-15] MEDS ORDERED: Triamterene/HCTZ 37.5-25 MG* CAP PO SCH (09:00)
--- NOTE | 2016-12-15 10:23 | PN ---
Subjective Date of Service: 12/15/16 Interval History: Patient seen this morning. Reports good pain control. Good PO intake. No new complaints. Family History: Unchanged from Admission Social History: Unchanged from Admission Past Medical History: Unchanged from Admission Objective Active Medications: Acetaminophen (Tylenol Tab*) 650 mg PO Q4H PRN PRN Reason: Pain and temp Hydrocodone Bitart/Acetaminophen ([place] 5-325 Tab*) 1 tab PO Q3H PRN PRN Reason: PAIN Last Admin: 12/15/16 08:33 Dose: 1 tab Hydrocodone Bitart/Acetaminophen ([place] 5-325 Tab*) 2 tab PO Q3H PRN PRN Reason: MORE SEVERE PAIN Aspirin (Aspirin Tab*) 325 mg PO DAILY [facility] Last Admin: 12/15/16 08:34 Dose: 325 mg Bisacodyl (Dulcolax Supp*) 10 mg [place] DAILY PRN PRN Reason: constipation Cholecalciferol (Vitamin D Tab*) 1,000 units PO 0900 [facility] Last Admin: 12/15/16 08:33 Dose: 1,000 units Cyanocobalamin (Vitamin B12 Tab*) 1,000 mcg PO 0900 [facility] Last Admin: 12/15/16 08:32 Dose: 1,000 mcg Cyclobenzaprine HCl (Flexeril Tab*) 10 mg PO TID [facility] Last Admin: 12/15/16 08:33 Dose: 10 mg Diphenhydramine HCl (Benadryl Po*) 25 mg PO Q6H PRN PRN Reason: itching Docusate Sodium (Colace Cap*) 100 mg PO BID [facility] Last Admin: 12/15/16 08:33 Dose: 100 mg Lactulose (Lactulose*) 30 ml PO Q6H PRN PRN Reason: constipation Last Admin: 12/15/16 08:34 Dose: 30 ml Magnesium Hydroxide (Milk Of Magnesia Liq*) 30 ml PO Q6H PRN PRN Reason: constipation Last Admin: 12/13/16 19:33 Dose: 30 ml Morphine Sulfate (Morphine Inj (Syringe)*) 2 mg IV Q2H PRN PRN Reason: SEVERE PAIN Ondansetron HCl (Zofran Inj*) 4 mg IV Q6H PRN PRN Reason: nausea Triamterene/HCTZ (Dyazide Cap*) 1 cap PO DAILY [facility] Last Admin: 12/15/16 09:19 Dose: 1 cap Vital Signs 12/14/16 12/14/16 12/14/16 11:25 11:50 13:12 Temperature 97.7 F Pulse Rate 99 Respiratory 16 18 16 Rate Blood Pressure 119/52 (mmHg) O2 Sat by Pulse 93 Oximetry 12/15/16 12/15/16 03:36 08:33 Temperature 98.8 F Pulse Rate 95 Respiratory 16 18 Rate Blood Pressure 140/75 (mmHg) O2 Sat by Pulse 97 Oximetry Oxygen Devices in Use Now: None Appearance: Elderly, F, laying in chair in NAD Eyes: No Scleral Icterus Ears/Nose/Mouth/Throat: Mucous Membranes Moist Neck: NL Appearance and Movements; NL JVP Respiratory: Symmetrical Chest Expansion and Respiratory Effort, Clear to Auscultation Cardiovascular: NL Sounds; No Murmurs; No JVD, - - HR high 90s Abdominal: NL Sounds; No Tenderness; No Distention Lymphatic: No Cervical Adenopathy Extremities: No Edema, - - L hip dressing c/d/i Skin: No Rash or Ulcers Neurological: Alert and Oriented x 3 Result Diagrams: 12/15/16 06:50 12/14/16 13:24 Assess/Plan/Problems-Billing Assessment: - Patient Problems (1) Status post left hip replacement Current Visit: Yes Comment: Management per orthopedic surgery. Pain control. PT/OT. H/H stable. (2) Bradycardia Current Visit: Yes Comment: Resolved (3) HTN (hypertension) Current Visit: Yes Comment: Restarted Dyazide this morning. Can resume Norvasc tomorrow (4) HLD (hyperlipidemia) Current Visit: Yes Status: Acute Code(s): E78.5 - HYPERLIPIDEMIA, UNSPECIFIED SNOMED Code(s): 70335300 Comment: Can resume red yeast rice on d/c (5) DVT prophylaxis Current Visit: Yes Comment: ASA and SCDs Status and Disposition: Inpatient for left hip replacement. Dispo per orthopedic surgery, seems likely d /c today
--- NOTE | 2016-12-15 10:30 | PN ---
Progress Note - Progress Note Date of Service: 12/15/16 SOAP: Subjective: 71 y/o female s/p L ELI by DR. Soriano. Patient eager for D/C, working well with PT, no complaints. Pain well controlled. Objective: General- Well appearing, NAD, AO MSK- L hip- dressing removed, oleksandr intact, inc c/d/i, no drainage noted, minimal ecchymosis around incision, non-tender to palpation, no edema. + DF/PF , neg homans, PT 2+ Vital Signs Temp 98.8 F 12/15/16 03:36 Pulse 95 12/15/16 03:36 Resp 18 12/15/16 08:33 BP 140/75 12/15/16 03:36 Pulse Ox 97 12/15/16 03:36 Intake & Output 12/14/16 12/15/16 12/15/16 18:59 06:59 18:59 Intake Total 2009 1400 535 Output Total 1300 1350 200 Balance 710 50 335 Intake: Oral 2009 1400 535 Output: Urine 1300 1350 200 Other: Estimated Void Medium Date of Last Bowel 12/14/16 Movement # Bowel Movements 0 Estimated Stool Amount Small # Voids 1 Assessment: Stable 71 y/o female s/p L ELI by DR. Soirano. Plan: - DVT prophylaxis- Aspirin 325mg daily - Continue PT/ OT exercises - FOllow up with DR. Soriano within 4 weeks - H&H stable - Active Medications Generic Name Dose Route Start Last Admin Trade Name Freq PRN Reason Stop Dose Admin Acetaminophen 650 mg 12/13/16 01:38 Tylenol Tab* PO Q4H PRN Pain and temp Hydrocodone Bitart/Acetaminophen 1 tab 12/14/16 07:47 12/15/16 08:33 [place] 5-325 Tab* PO 1 tab Q3H PRN Administration PAIN Hydrocodone Bitart/Acetaminophen 2 tab 12/14/16 07:48 [place] 5-325 Tab* PO Q3H PRN MORE SEVERE PAIN Aspirin 325 mg 12/13/16 09:00 12/15/16 08:34 Aspirin Tab* PO 325 mg DAILY ARNULFO Administration Bisacodyl 10 mg 12/12/16 10:18 Dulcolax Supp* [place] DAILY PRN constipation Cholecalciferol 1,000 units 12/14/16 09:00 12/15/16 08:33 Vitamin D Tab* PO 1,000 units 0900 ARNULFO Administration Cyanocobalamin 1,000 mcg 12/14/16 09:00 12/15/16 08:32 Vitamin B12 Tab* PO 1,000 mcg 0900 ARNULFO Administration Cyclobenzaprine HCl 10 mg 12/12/16 14:00 12/15/16 08:33 Flexeril Tab* PO 10 mg TID ARNULFO Administration Diphenhydramine HCl 25 mg 12/12/16 10:18 Benadryl Po* PO Q6H PRN itching Docusate Sodium 100 mg 12/12/16 21:00 12/15/16 08:33 Colace Cap* PO 100 mg BID ARNULFO Administration Lactulose 30 ml 12/12/16 10:18 12/15/16 08:34 Lactulose* PO 30 ml Q6H PRN Administration constipation Magnesium Hydroxide 30 ml 12/12/16 10:18 12/13/16 19:33 Milk Of Magnesia Liq* PO 30 ml Q6H PRN Administration constipation Morphine Sulfate 2 mg 12/13/16 06:00 Morphine Inj (Syringe)* IV Q2H PRN SEVERE PAIN Ondansetron HCl 4 mg 12/13/16 01:38 Zofran Inj* IV Q6H PRN nausea Triamterene/HCTZ 1 cap 12/15/16 09:00 12/15/16 09:19 Dyazide Cap* PO 1 cap DAILY ARNULFO Administration
[2016-12-15 11:57] VITALS: BP 115/66
--- NOTE | 2016-12-15 18:20 | DS ---
DISCHARGE SUMMARY: DATE OF ADMISSION: 12/12/16 DATE OF DISCHARGE: 12/15/16 ATTENDING PHYSICIAN: Rojelio Soriano MD CHIEF COMPLAINT: 1. Left hip pain. 2. Hypertension. DISCHARGE DIAGNOSES: 1. Status post left total hip replacement. 2. History of bradycardia. 3. Hypertension. PROCEDURE: Left total hip replacement. CONSULTATIONS: 1. Physical Therapy. 2. Occupational Therapy. 3. Medicine. BRIEF HISTORY: Ms. Craven is a very pleasant 71-year-old female with a longstanding history of left hip pain due to degenerative joint disease, who elected to undergo a left total hip arthroplasty by Dr. Soriano on 12/12/16. HOSPITAL COURSE: Ms. Craven was admitted to [facility] on 12/12/16 where she underwent an uncomplicated left total hip arthroplasty. Postoperatively, the patient had episodes of bradycardia associated with nausea and vomiting in the PACU and was sent to the ICU to monitor. She was transferred after her pulse rate increased into the 70s and 80s consistently. She recovered for the rest of the hospital stay in the surgical short stay unit. Her Clark was removed on postoperative day 2 and she was voiding on her own without difficulty. She advanced to a regular diet and her pain was controlled with p.o. Percocet. She was restarted on her home medications with hold parameters except for Norvasc. She was able to weightbear as tolerated on the left lower extremity and she advanced appropriately with physical therapy and occupational therapy. Her DVT prophylaxis was managed with Lovenox and aspirin. By postoperative day 3, she was orthopedically and medically stable for discharge to go home with home services. PHYSICAL EXAMINATION: General: Well appearing, in no acute distress. Alert and oriented. Temperature 98.8, pulse 95, respirations 18, blood pressure 140/ 75, and pulse oxygenation 97% on room air. Left hip, the dressing was removed. The oleksandr were intact. The incision was clean, dry, and intact with no sign of drainage noted. Minimal ecchymosis around the incision site. Nontender to palpation. No edema. Positive dorsiflexion and plantarflexion bilaterally. Negative Homans' sign bilaterally. Posterior tibial pulses 2+ bilaterally. Sensation grossly intact in bilateral lower extremities. LABORATORY DATA: On date of discharge, include H and H of 9.3 and 27. RADIOGRAPHS: Postoperative pelvic x-ray taken on 09/19/17 showed satisfactory left total hip replacement. DISCHARGE MEDICATIONS: 1. Aspirin 325 mg p.o. daily. 2. Acetaminophen 650 mg p.o. q.4 hours p.r.n., not to exceed 4000 mg per day. 3. Cholecalciferol 1000 units p.o. daily. 4. Vitamin B12 100 mcg p.o. daily. 5. Flexeril 10 mg p.o. t.i.d. p.r.n. 6. Colace 100 mg p.o. b.i.d. 7. [place] 5/325 mg 1 to 2 tablets every 4 hours as needed for pain. 8. Thiazide 1 cap p.o. daily (37.5/25). 9. Norvasc 10 mg p.o., to restart on 12/16/16 daily. 10. Fish oil 1 tablet p.o. daily. 11. Ibuprofen 600 mg p.o. as needed for pain. 12. Magnesium 250 mg p.o. daily. 13. Melatonin 10 mg p.o. q.h.s. p.r.n. 14. Potassium gluconate 595 mg p.o. daily. 15. Probiotic 1 cap p.o. daily. 16. Red yeast extract 600 mg p.o. daily. 17. Simethicone 125 mg p.o. daily p.r.n. 18. Aspercreme 1 application topically every 6 hours as needed p.r.n. 19. Theragran vitamin 1 tablet p.o. daily. 20. Tramadol 50 mg 1 to 2 tablets p.o. q.h.s. p.r.n., not to be taken with Hesperus. CONDITION ON DISCHARGE: Stable. DISCHARGE INSTRUCTIONS: Ms. Craven is a 71-year-old female postoperative day 3 , status post left total hip arthroplasty, which is uncomplicated. She is orthopedically and medically stable for discharge to go home with home services. Her labs and vital signs are stable. She will restart her home medications, however, we will start her Norvasc tomorrow. She will take aspirin 325 mg daily for DVT prophylaxis. She will remain weightbearing as tolerated on the left lower extremity. She will have home physical therapy twice a week and visiting home nurse services, which will remove the oleksandr in approximately 10 to 14 days. She will follow up with Dr. Bo in approximately 4 to 6 weeks' time frame. She will take Hesperus as needed for pain control as well as Colace up to 3 times a day for constipation. She is educated to go to the ER should she develop chest pain or shortness of breath and to call the office with any other concerns such as increased drainage, redness, fevers or chills. JONNY TREVIÑO [id number]/[facility] #: [id number] MICKEY
== END 2016-12-15 16:40 | disposition home health service (06) | DRG 470 ==
LOC: AA 05:53 → ICU 15:37 → MEDTELE 19:50 → SSU 12-13 15:33
PROVIDERS: ADMIT Orthopaedic Surgery; ATTEND Orthopaedic Surgery
PROC: 0SRB02A Replacement of Left Hip Joint with Metal on Polyethylene Synthetic Substitute, Uncemented, Open Approach (ICD-10-PCS; principal; 2016-12-12)
PROC: 3E0234Z Introduction of Serum, Toxoid and Vaccine into Muscle, Percutaneous Approach (ICD-10-PCS; 2016-12-13)
DX: M16.12 Unilateral primary osteoarthritis, left hip (principal); R00.1 Bradycardia, unspecified; E83.42 Hypomagnesemia; D62 Acute posthemorrhagic anemia; Z98.42 Cataract extraction status, left eye; E87.6 Hypokalemia; R42 Dizziness and giddiness; E78.5 Hyperlipidemia, unspecified; I10 Essential (primary) hypertension; R11.2 Nausea with vomiting, unspecified; Z96.641 Presence of right artificial hip joint; M25.752 Osteophyte, left hip; Z23 Encounter for immunization; Z90.49 Acquired absence of other specified parts of digestive tract; Z90.711 Acquired absence of uterus with remaining cervical stump; Z98.41 Cataract extraction status, right eye; Z87.01 Personal history of pneumonia (recurrent); Z82.49 Family history of ischemic heart disease and other diseases of the circulatory system; Z83.79 Family history of other diseases of the digestive system; Z79.82 Long term (current) use of aspirin
CPT/HCPCS: 36415; 72170; 80048; 80053; 82310; 83735; 84100; 84484; 85014; 85018; 87641; 90686; 93005; 94760; A9270-GY; J0690; J0780; J2250; J2405; J2704; J2765; J3010; J3475; J3480

== ENCOUNTER 2016-12-23 11:25 | Emergency (ER) | payer MEDICARE ==
--- NOTE | 2016-12-23 12:25 | RAD ---
INDICATION: Chest pain COMPARISON: December 04, 2016 TECHNIQUE: An AP portable view obtained at 1215 hours is submitted. FINDINGS: Bones/Soft Tissues: There are no acute bony findings. Cardiomediastinal: The cardiomediastinal silhouette is normal. Lungs: There are no infiltrates. TThere is no definitive left lower lobe nodule as suggested previously but today's examination is a AP view only and the former examination was a dual-energy 2 view study. Pleura: There are no pleural effusions. Other: None IMPRESSION: No active disease. Please refer also to December 04, 2016 report.
[2016-12-23 12:35] LABS: Hematocrit 32 % (35-47); Hemoglobin 10.5 g/dl (12.0-16.0); Mean Corpuscular HGB Conc 33 g/dl (31-36); Mean Corpuscular Hemoglobin 28 pg (27-31); Mean Corpuscular Volume 85 fL (80-97); Mean Platelet Volume 6 um3 (7.4-10.4); Red Cell Distribution Width 14 % (10.5-15); White Blood Count 13.8 10^3/ul (3.5-10.8)
[2016-12-23 13:04] LABS: Albumin 3.9 g/dL (3.2-5.2); BUN/Creatinine Ratio 25.8 (8-20); Calcium 10.1 mg/dL (8.6-10.3); EGFR African American 121.7 (>60); EGFR Non-African American 94.6 (>60); Globulin 3.3 g/dL (2-4); Potassium 3.5 mmol/L (3.5-5.0); Total Bilirubin 0.5 mg/dL (0.2-1.0); Total Protein 7.2 g/dL (6.4-8.9)
[2016-12-23 13:06] LABS: Troponin I 0.03 ng/mL (<0.04)
[2016-12-23] MEDS ORDERED: Iohexol 350* (CONTRAST) 500 ML MDV IV ONE (13:34)
[2016-12-23 13:46] LABS: TSH (Thyroid Stimulating Horm) 1.5 mcIU/mL (0.34-5.60)
--- NOTE | 2016-12-23 14:14 | RAD ---
INDICATION: Chest pain. Short of breath. Evaluate for pulmonary embolus. COMPARISON: Chest x-ray December 23, 2016 TECHNIQUE: Axial source images were obtained from the thoracic inlet to the hemidiaphragms following administration of [address] angiographic technique was utilized. Coronal and sagittal reconstructed images were acquired. CHEST FINDINGS: Neck/thyroid: The visualized neck to include the thyroid is remarkable a heterogeneous right thyroid lobe with a low-density 0.9 cm nodule. This could be evaluated with nonemergent ultrasonography of the patient's clinically well. Chest wall: There are no acute abnormalities of the bony thorax or chest wall. There is no supraclavicular, infraclavicular, or axillary lymphadenopathy. Lungs : There are no pulmonary parenchymal masses or infiltrates. There is mild gravity dependent atelectasis The pulmonary interstitium appears normal. There are no endobronchial lesions. Cardiomediastinal structures: There is no CT evidence of acute pulmonary embolic disease. The heart is normal in size. There is no pericardial effusion. There is no evidence of aortic aneurysm or dissection. There is no mediastinal or hilar adenopathy. The esophagus appears normal. Pleura : There are no pleural-based masses or effusions. Other: Limited views the upper abdomen show cholecystectomy. IMPRESSION: NO CT EVIDENCE OF ACUTE PULMONARY EMBOLIC DISEASE. LUNGS CLEAR.
[2016-12-23] MEDS ORDERED: diPHENhydraMINE PO* 25 MG PO ONE (15:23)
[2016-12-23] MEDS ORDERED: predniSONE TAB* 20 MG PO ONE (15:23)
[2016-12-23 15:58] VITALS: BP 142/70
--- NOTE | 2016-12-24 21:04 | ED ---
Jeanette Machado Edward, scribed for Jeancarlos Kaufman MD on 12/23/16 at 1133 . HPI Chest Pain - HPI Summary HPI Summary: 71 y/o female presents to the ED c/o intermittent CP starting last night and going on through the morning. Pt is in no pain currently. The patient was trying to sleep when it started. The pain is described as a pressure located in the mid sternal region that radiates into the back. Associated sx: rash under both breasts, at the L hip and the back, diaphoretic this morning, constipation (but had 3 bowel movements this morning). Denies dizziness, SOB, nausea. PMHx HTN. Pt had hip replacement surgery a couple of days ago. SHx bilateral hip replacement (2014 and 2016). - History of Current Complaint Hx Obtained From: Patient Onset/Duration: Started Hours Ago Timing: Intermittent Current Severity: None Chest Pain Location: Mid Sternal Chest Pain Radiates: Yes Chest Pain Radiates To:: Back Character: Pressure/Squeezing Aggravating Factor(s): Nothing Alleviating Factor(s): Nothing Associated Signs and Symptoms: Positive: Chest Pain, Diaphoresis, Other: - Constipation, rash. Negative: Dizziness, Shortness of Breath, Nausea, Abdominal Pain - Additional Pertinent History Primary Care Physician: [id number] - Allergy/Home Medications Allergies/Adverse Reactions: Allergies Allergy/AdvReac Type Severity Reaction Status Date / Time No Known Allergies Allergy Verified 12/12/16 06:06 PMH/Surg Hx/FS Hx/Imm Hx Previously Healthy: No Cardiovascular History: Reports: Hx Hypercholesterolemia, Hx Hypertension, Other Cardiovascular Problems/Disorders - irrefular rythm, ectopy reported to PCP Denies: Hx Pacemaker/ICD Respiratory History: Reports: Hx Pneumonia - 2016, Hx Sleep Apnea - possible, has not been diagnosed Denies: Other Respiratory Problems/Disorders GI History: Reports: Other GI Disorders - chronic constipation hx Musculoskeletal History: Reports: Hx Arthritis - RIGHT HIP, BOTH KNEES AND HANDS , 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 RIGHT TOTAL HIP REPLACEMENT 2014 [facility] [place] [address] TAV[place] Strickland Anesthesia Reactions: No - Family History Known Family History: Positive: Other - Negative for heart attack, stroke, and blood clots - Social History Alcohol Use: Rare Hx Substance Use: No Substance Use Type: Reports: None Hx Tobacco Use: No Smoking Status (MU): Never Smoked Tobacco Review of Systems Positive: Skin Diaphoresis Eyes: Negative ENT: Negative Positive: Chest Pain Respiratory: Negative Positive: Other - Constipation. Negative: Nausea Genitourinary: Negative Musculoskeletal: Negative Positive: Rash Neurological: Negative Psychological: Normal All Other Systems Reviewed And Are Negative: Yes Physical Exam - Summary Physical Exam Summary: VITAL SIGNS: Reviewed. GENERAL: Patient is a well-developed and nourished female who is lying comfortable in the stretcher. Patient is not in any acute respiratory distress. HEAD AND FACE: No signs of trauma. No ecchymosis, hematomas or skull depressions. No sinus tenderness. EYES: PERRLA, EOMI x 2, No injected conjunctiva, no nystagmus. EARS: Hearing grossly intact. Ear canals and tympanic membranes are within normal limits. MOUTH: Oropharynx within normal limits. NECK: Supple, trachea is midline, no adenopathy, no JVD, no carotid bruit, no c- spine tenderness, neck with full ROM. CHEST: Symmetric, no tenderness at palpation LUNGS: Clear to auscultation bilaterally. No wheezing or crackles. CVS: Regular rate and rhythm, S1 and S2 present, no murmurs or gallops appreciated. ABDOMEN: Soft, non-tender. No signs of distention. No rebound no guarding, and no masses palpated. Bowel sounds are normal. EXTREMITIES: FROM in all major joints, no edema, no cyanosis or clubbing. NEURO: Alert and oriented x 3. No acute neurological deficits. Speech is normal and follows commands. SKIN: Dry and warm. Erythematous rash under both breasts and at the back. Triage Information Reviewed: Yes Vital Signs On Initial Exam: Initial Vitals Temp Pulse Resp BP Pulse Ox 98.4 F 107 18 144/94 95 12/23/16 11:27 12/23/16 11:27 12/23/16 11:27 12/23/16 11:27 12/23/16 11:27 Vital Signs Reviewed: Yes Diagnostics - Vital Signs Vital Signs Temp Pulse Resp BP Pulse Ox 12/23/16 16:25 99.1 F 97 20 142/70 12/23/16 16:00 96 18 94 12/23/16 15:30 102 19 142/70 96 12/23/16 15:00 91 18 138/77 93 12/23/16 14:46 131/71 12/23/16 14:00 88 19 97 12/23/16 13:30 90 17 142/69 94 12/23/16 13:00 85 15 150/73 98 12/23/16 12:30 95 20 140/69 95 12/23/16 12:25 95 19 96 12/23/16 12:22 97 12/23/16 11:27 98.4 F 107 18 144/94 95 - Laboratory Lab Results: Lab Results 12/23/16 12/23/16 12/23/16 Range/Units 12:15 12:15 12:15 WBC 13.8 H (3.5-10.8) 10^3/ul RBC 3.80 L (4.0-5.4) 10^6/ul Hgb 10.5 L (12.0-16.0) g/dl Hct 32 L (35-47) % MCV 85 (80-97) fL MCH 28 (27-31) pg MCHC 33 (31-36) g/dl RDW 14 (10.5-15) % Plt Count 469 H D (150-450) 10^3/ul MPV 6 L (7.4-10.4) um3 Neut % (Auto) 83.8 H (38-83) % Lymph % (Auto) 11.1 L (25-47) % [place] % (Auto) 4.9 (1-9) % Eos % (Auto) 0.1 (0-6) % Baso % (Auto) 0.1 (0-2) % Absolute Neuts (auto) 11.6 H (1.5-7.7) 10^3/ul Absolute Lymphs (auto) 1.5 (1.0-4.8) 10^3/ul Absolute Monos (auto) 0.7 (0-0.8) 10^3/ul Absolute Eos (auto) 0 (0-0.6) 10^3/ul Absolute Basos (auto) 0 (0-0.2) 10^3/ul Absolute Nucleated RBC 0.01 10^3/ul Nucleated RBC % 0.1 D-Dimer, Quantitative (Less Than 230) ng/mL Sodium (133-145) mmol/L Potassium (3.5-5.0) mmol/L Chloride (101-111) mmol/L Carbon Dioxide (22-32) mmol/L Anion Gap (2-11) mmol/L BUN (6-24) mg/dL Creatinine (0.51-0.95) mg/dL Est GFR ( Amer) (>60) Est GFR (Non-Af Amer) (>60) BUN/Creatinine Ratio (8-20) Glucose (70-100) mg/dL Lactic Acid (0.5-2.0) mmol/L Calcium (8.6-10.3) mg/dL Magnesium (1.9-2.7) mg/dL Total Bilirubin (0.2-1.0) mg/dL AST (13-39) U/L ALT (7-52) U/L Alkaline Phosphatase (34-104) U/L Total Creatine Kinase 26 (10-223) U/L CK-MB (CK-2) (0.6-6.3) ng/mL Troponin I (<0.04) ng/mL B-Natriuretic Peptide 84 ( - 100) pg/mL Total Protein (6.4-8.9) g/dL Albumin (3.2-5.2) g/dL Globulin (2-4) g/dL Albumin/Globulin Ratio (1-3) TSH (0.34-5.60) mcIU/mL Hepatitis C Antibody (Nonreactive) 12/23/16 12/23/16 12/23/16 Range/Units 12:15 12:15 12:15 WBC (3.5-10.8) 10^3/ul RBC (4.0-5.4) 10^6/ul Hgb (12.0-16.0) g/dl Hct (35-47) % MCV (80-97) fL MCH (27-31) pg MCHC (31-36) g/dl RDW (10.5-15) % Plt Count (150-450) 10^3/ul MPV (7.4-10.4) um3 Neut % (Auto) (38-83) % Lymph % (Auto) (25-47) % [place] % (Auto) (1-9) % Eos % (Auto) (0-6) % Baso % (Auto) (0-2) % Absolute Neuts (auto) (1.5-7.7) 10^3/ul Absolute Lymphs (auto) (1.0-4.8) 10^3/ul Absolute Monos (auto) (0-0.8) 10^3/ul Absolute Eos (auto) (0-0.6) 10^3/ul Absolute Basos (auto) (0-0.2) 10^3/ul Absolute Nucleated RBC 10^3/ul Nucleated RBC % D-Dimer, Quantitative > 1050 H (Less Than 230) ng/mL Sodium 131 L (133-145) mmol/L Potassium 3.5 (3.5-5.0) mmol/L Chloride 94 L (101-111) mmol/L Carbon Dioxide 26 (22-32) mmol/L Anion Gap 11 (2-11) mmol/L BUN 16 (6-24) mg/dL Creatinine 0.62 (0.51-0.95) mg/dL Est GFR ( Amer) 121.7 (>60) Est GFR (Non-Af Amer) 94.6 (>60) BUN/Creatinine Ratio 25.8 H (8-20) Glucose 92 (70-100) mg/dL Lactic Acid (0.5-2.0) mmol/L Calcium 10.1 (8.6-10.3) mg/dL Magnesium 2.0 (1.9-2.7) mg/dL Total Bilirubin 0.50 (0.2-1.0) mg/dL AST 17 (13-39) U/L ALT 16 (7-52) U/L Alkaline Phosphatase 70 (34-104) U/L Total Creatine Kinase (10-223) U/L CK-MB (CK-2) 1.3 (0.6-6.3) ng/mL Troponin I 0.03 (<0.04) ng/mL B-Natriuretic Peptide ( - 100) pg/mL Total Protein 7.2 (6.4-8.9) g/dL Albumin 3.9 (3.2-5.2) g/dL Globulin 3.3 (2-4) g/dL Albumin/Globulin Ratio 1.2 (1-3) TSH 1.50 (0.34-5.60) mcIU/mL Hepatitis C Antibody Nonreactive (Nonreactive) 12/23/16 12/23/16 Range/Units 12:15 14:54 WBC (3.5-10.8) 10^3/ul RBC (4.0-5.4) 10^6/ul Hgb (12.0-16.0) g/dl Hct (35-47) % MCV (80-97) fL MCH (27-31) pg MCHC (31-36) g/dl RDW (10.5-15) % Plt Count (150-450) 10^3/ul MPV (7.4-10.4) um3 Neut % (Auto) (38-83) % Lymph % (Auto) (25-47) % [place] % (Auto) (1-9) % Eos % (Auto) (0-6) % Baso % (Auto) (0-2) % Absolute Neuts (auto) (1.5-7.7) 10^3/ul Absolute Lymphs (auto) (1.0-4.8) 10^3/ul Absolute Monos (auto) (0-0.8) 10^3/ul Absolute Eos (auto) (0-0.6) 10^3/ul Absolute Basos (auto) (0-0.2) 10^3/ul Absolute Nucleated RBC 10^3/ul Nucleated RBC % D-Dimer, Quantitative (Less Than 230) ng/mL Sodium (133-145) mmol/L Potassium (3.5-5.0) mmol/L Chloride (101-111) mmol/L Carbon Dioxide (22-32) mmol/L Anion Gap (2-11) mmol/L BUN (6-24) mg/dL Creatinine (0.51-0.95) mg/dL Est GFR ( Amer) (>60) Est GFR (Non-Af Amer) (>60) BUN/Creatinine Ratio (8-20) Glucose (70-100) mg/dL Lactic Acid 1.4 (0.5-2.0) mmol/L Calcium (8.6-10.3) mg/dL Magnesium (1.9-2.7) mg/dL Total Bilirubin (0.2-1.0) mg/dL AST (13-39) U/L ALT (7-52) U/L Alkaline Phosphatase (34-104) U/L Total Creatine Kinase (10-223) U/L CK-MB (CK-2) (0.6-6.3) ng/mL Troponin I 0.03 (<0.04) ng/mL B-Natriuretic Peptide ( - 100) pg/mL Total Protein (6.4-8.9) g/dL Albumin (3.2-5.2) g/dL Globulin (2-4) g/dL Albumin/Globulin Ratio (1-3) TSH (0.34-5.60) mcIU/mL Hepatitis C Antibody (Nonreactive) Result Diagrams: 12/23/16 12:15 12/23/16 12:15 Lab Statement: Any lab studies that have been ordered have been reviewed, and results considered in the medical decision making process. - Radiology CXR Xray Interpretation: No Acute Changes - No active disease. Please also refer to Dec 04 2016 report. Radiology Interpretation Completed By: Radiologist - CT CHEST/THORAX CTA CT Interpretation: No Acute Changes - NO CT EVIDENCE OF ACUTE PULMONARY EMBOLIC DISEASE. LUNGS CLEAR. CT Interpretation Completed By: Radiologist - EKG 1 EKG Interpretation: 11:35 - SR @ [address] elevations. Normal axis Chest Pain Course/Dx - Course Assessment/Plan: 71 y/o female presents to the ED c/o intermittent CP starting last night and going on through the morning. Pt is in no pain currently. The patient was trying to sleep when it started. The pain is described as a pressure located in the mid sternal region that radiates into the back. Associated sx: rash under both breasts, at the L hip and the back, diaphoretic this morning, constipation (but had 3 bowel movements this morning). Denies dizziness, SOB, nausea. PMHx HTN. SHx hip replacement (2014). EKG @ 11:35 - SR @ [address] elevations. Normal axis. CXR SHOWS No active disease. CHEST/ THORAX CTA SHOWS NO CT EVIDENCE OF ACUTE PULMONARY EMBOLIC DISEASE. LUNGS CLEAR. WBC 13.8, H&H shows slight anemia improved from previous visits. D- dimer 1050. CXR shows no acute pathology. I decided to do a D-dimer b/c of CP, SOB and recent surgery. I decided to take a CTA to r/o PE. CTA negative for PE. Pt feels better with no complaints at this point. The pt required no pain medications. The pt was given prednisone and Benadryl for rash. At this point the pt will be d/c home with f/u with PCP. The pt is hemodynamically stable and A&Ox3. - Chest Pain Differential Diagnosis/HQI/PQRI: ACS, Angina, CHF, Chest Wall, Lower Respiratory Infection - Diagnoses Provider Diagnoses: Chest pain, Allergic reaction Discharge - Discharge Plan Condition: Stable Disposition: HOME Prescriptions: Triamcinolone 0.5% CREAM(NF) [Kenalog Cream 0.5%(NF)] 1 applic TOPICAL BID #30 gm diPHENhydraMINE PO* [Benadryl PO 25 MG TAB*] 25 mg PO TID PRN #20 tab PRN Reason: Allergy Symptoms predniSONE TAB* [Deltasone TAB*] 40 mg PO DAILY #8 tab Patient Education Materials: Chest Pain (ED), General Allergic Reaction (ED) Referrals: David Ernandez MD [Primary Care Provider] - 3 Days (PLEASE F/U IN 2-3 DAYS) The documentation as recorded by the Jeanette berman Edward accurately reflects the service I personally performed and the decisions made by , Jeancarlos aKufman MD.
== END 2016-12-23 16:25 | disposition home or self-care (01) ==
LOC: ED 11:25
DX: R07.9 Chest pain, unspecified (principal); T78.40XA Allergy, unspecified, initial encounter; X58.XXXA Exposure to other specified factors, initial encounter; I10 Essential (primary) hypertension; E78.00 Pure hypercholesterolemia, unspecified
CPT/HCPCS: 36415; 71010; 71275; 80053; 82550; 82553; 83605; 83735; 83880; 84443; 84484; 85025; 85379; 86803; 87040; 93005; 96374; 99283; A9270-GY; J7512; Q9967

== ENCOUNTER 2018-02-28 10:18 | Emergency (ER) | payer MEDICARE ==
[2018-02-28 10:40] VITALS: BP 141/83
--- NOTE | 2018-02-28 11:00 | UC ---
Throat Pain/Nasal Dmitriy HPI - HPI Summary HPI Summary: 72-year-old woman 72-year-old woman today with a chief complaint of runny nose sore throat cough and sinus and chest congestion. She's been sick for about 8 days. Apparently in the sinuses initially she feels like it's moved into her chest also. She talks about yellow-green rhinorrhea and copious amounts of rhinorrhea especially in the morning. Does not feel short of breath no wheezing. Not a smoker. - History of Current Complaint Chief Complaint: UCGeneralIllness Stated Complaint: COUGH SINUS ISSUE Time Seen by Provider: 02/28/18 10:50 Pain Intensity: 0 - Allergies/Home Medications Allergies/Adverse Reactions: Allergies Allergy/AdvReac Type Severity Reaction Status Date / Time No Known Allergies Allergy Verified 02/28/18 10:28 Home Medications: Home Medications Aspirin 81 mg CHEW TAB* [Aspirin Low Dose TAB*] 81 mg PO BEDTIME 02/28/18 [ History Confirmed 02/28/18] Lisinopril [Lisinopril 30 MG-] 30 mg PO DAILY 02/28/18 [History Confirmed ] PMH/Surg Hx/FS Hx/Imm Hx Previously Healthy: Yes Cardiovascular History: Hypertension - Surgical History Surgical History: Yes Surgery Procedure, Year, and Place: PARTIAL HYSTERECTOMY 2008, BILAT CATARACTS 1999,2007 LAPARASCOPIC GALLBLADDER . RIGHT TOTAL HIP REPLACEMENT 2014 [facility] [place]. L total hip 2017 - Family History Known Family History: Positive: Other - Negative for heart attack, stroke, and blood clots - Social History Alcohol Use: None Substance Use Type: None Smoking Status (MU): Never Smoked Tobacco Household Exposure Type: Cigarettes - Immunization History Most Recent Influenza Vaccination: 2016 Most Recent Tetanus Shot: UP TO DATE Most Recent Pneumonia Vaccination: 2014 Review of Systems All Other Systems Reviewed And Are Negative: Yes Constitutional: Positive: Negative Skin: Positive: Negative Eyes: Positive: Negative ENT: Positive: Sore Throat, Nasal Discharge, Sinus Congestion, Sinus Pain/ Tenderness Respiratory: Positive: Cough. Negative: Shortness Of Breath Cardiovascular: Positive: Negative Gastrointestinal: Positive: Negative Motor: Positive: Negative Neurovascular: Positive: Negative Musculoskeletal: Positive: Negative Neurological: Positive: Negative Psychological: Positive: Negative Is Patient Immunocompromised?: No Physical Exam Triage Information Reviewed: Yes Appearance: No Pain Distress, Well-Nourished, Ill-Appearing - mild Vital Signs: Initial Vital Signs Temp 98.8 F 02/28/18 10:32 Pulse 60 02/28/18 10:32 Resp 18 02/28/18 10:32 BP 141/83 02/28/18 10:32 Pulse Ox 97 02/28/18 10:32 Vital Signs Reviewed: Yes Eye Exam: Normal Eyes: Positive: Conjunctiva Clear ENT: Positive: Pharyngeal erythema, Nasal congestion, Nasal drainage, TMs normal Neck exam: Normal Neck: Positive: Supple Respiratory: Positive: Lungs clear, Normal breath sounds, No respiratory distress Cardiovascular: Positive: RRR Musculoskeletal Exam: Normal Musculoskeletal: Positive: Strength Intact, ROM Intact Neurological Exam: Normal Neurological: Positive: Alert, Muscle Tone Normal Psychological Exam: Normal Psychological: Positive: Age Appropriate Behavior Skin Exam: Normal Throat Pain/Nasal Course/Dx - Course Course Of Treatment: DISCUSSED VIRAL VERSES BACTERIAL INFECTION AND THE ROLE OF ANTIBIOTICS. THE PATIENT WISHES TO BE ON ANTIBIOTIC AT THIS TIME. - Differential Dx/Diagnosis Provider Diagnosis: Sinusitis Discharge - Sign-Out/Discharge Documenting (check all that apply): Patient Departure All imaging exams completed and their final reports reviewed: No Studies - Discharge Plan Condition: Stable Disposition: HOME Prescriptions: Amoxicillin/Clavulanate TAB* [Augmentin TAB 875*] 875 mg PO BID #20 tab Patient Education Materials: Sinusitis (ED) Referrals: David Ernandez MD [Primary Care Provider] - Additional Instructions: FOLLOW UP WITH YOUR DOCTOR IF NOT COMPLETELY IMPROVED. GET RECHECKED FOR ANY WORSENING OF YOUR CONDITION OR QUESTIONS OR CONCERNS. - Billing Disposition and Condition Condition: STABLE Disposition: Home
== END 2018-02-28 11:15 | disposition home or self-care (01) ==
LOC: UCEAST 10:18
DX: J32.9 Chronic sinusitis, unspecified (principal); I10 Essential (primary) hypertension
CPT/HCPCS: 99212; G0463

== ENCOUNTER 2018-03-25 16:44 | Emergency (ER) | payer MEDICARE ==
--- NOTE | 2018-03-25 16:49 | UC ---
Complaint Female HPI - HPI Summary HPI Summary: 72 yo female presents with voiding small amounts and cloudy urine for the last 2 days. Also has been feeling more fatigued with nausea. Denies fever, chills, vomiting, diarrhea. - History Of Current Complaint Stated Complaint: UTI Time Seen by Provider: 03/25/18 16:46 Hx Obtained From: Patient Onset/Duration: Gradual Onset Severity Initially: Mild Severity Currently: Mild Pain Intensity: 3 Pain Scale Used: 0-10 Numeric - Allergies/Home Medications Allergies/Adverse Reactions: Allergies Allergy/AdvReac Type Severity Reaction Status Date / Time No Known Allergies Allergy Verified 03/25/18 16:52 Home Medications: Home Medications Aspirin/Acetaminophen/Caffeine [Excedrin Extra Strength Caplet] PRN 03/25/18 [ History] Ibuprofen TAB* [Advil TAB*] 400 mg PO PRN 03/25/18 [History] Vitamins* 03/25/18 [History] PMH/Surg Hx/FS Hx/Imm Hx Endocrine History: Dyslipidemia Cardiovascular History: Hypertension - Surgical History Surgical History: Yes Surgery Procedure, Year, and Place: PARTIAL HYSTERECTOMY 2008, BILAT CATARACTS 1999,2008 LAPARASCOPIC GALLBLADDER . RIGHT TOTAL HIP REPLACEMENT 2014 [facility] [place] DR. MONTES DE OCA. L total hip 2017 - Family History Known Family History: Positive: None - Social History Lives: With Family Alcohol Use: None Substance Use Type: None Smoking Status (MU): Never Smoked Tobacco Household Exposure Type: Cigarettes - Immunization History Most Recent Influenza Vaccination: 2016 Most Recent Tetanus Shot: UP TO DATE Most Recent Pneumonia Vaccination: 2014 Review of Systems All Other Systems Reviewed And Are Negative: Yes Constitutional: Positive: Negative Skin: Positive: Negative Respiratory: Positive: Negative Cardiovascular: Positive: Negative Gastrointestinal: Positive: Negative Genitourinary: Positive: Dysuria Neurovascular: Positive: Negative Neurological: Positive: Negative Physical Exam - Summary Physical Exam Summary: GENERAL: NAD. WDWN. No pain distress. SKIN: No rashes, sores, lesions, or open wounds. NECK: Supple. Nontender. No lymphadenopathy. CHEST: CTAB. No r/r/w. No accessory muscle use. Breathing comfortably and in no distress. CV: RRR. Without m/r/g. Pulses intact. Cap refill <2seconds ABDOMEN: Mild LEFT CVA tenderness. Soft. NTTP. No distention or guarding. Bowel sounds present NEURO: Alert. PSYCH: Age appropriate behavior. Triage Information Reviewed: Yes Vital Signs: Vital Signs: Temp Pulse Resp BP Pulse Ox 98.7 F 89 16 150/57 96 03/25/18 16:47 03/25/18 16:47 03/25/18 16:47 03/25/18 16:47 03/25/18 16:47 Laboratory Tests 03/25/18 17:05 POC Urine Color Yellow POC Urine Clarity Cloudy POC Urine pH 6.0 POC Ur Specif [place] <= 1.005 L POC Urine Protein 2+ A POC Ur Glucose (UA) Negative POC Urine Ketones Negative POC Urine Blood 2+ A POC Urine Nitrite Positive A POC Urine Bilirubin Negative POC Urine Urobilinogen 0.2 POC U Leukocyte Esteras 3+ A Vital Signs Reviewed: Yes Complaint Female Dx - Course Course Of Treatment: UA with signs of infection with CVA tenderness and nausea. Rx for cipro. - Differential Dx/Diagnosis Provider Diagnosis: UTI (urinary tract infection) Discharge - Sign-Out/Discharge Documenting (check all that apply): Patient Departure All imaging exams completed and their final reports reviewed: No Studies - Discharge Plan Condition: Stable Disposition: HOME Prescriptions: Ciprofloxacin HCl [Cipro 500 MG TAB] 500 mg PO BID #10 tab Patient Education Materials: Urinary Tract Infection in Women (ED) Referrals: David Ernandez MD [Primary Care Provider] - Additional Instructions: If you develop a fever, shortness of breath, chest pain, new or worsening symptoms - please call your PCP or go to the ED. - Billing Disposition and Condition Condition: STABLE Disposition: Home - Attestation Statements Provider Attestation: I was available for consult. This patient was seen by the LESTER. The patient was not presented to, seen by, or examined by me. -Brody
[2018-03-25 16:52] VITALS: BP 150/57
== END 2018-03-25 17:23 | disposition home or self-care (01) ==
LOC: UCEAST 16:44
DX: N39.0 Urinary tract infection, site not specified (principal); I10 Essential (primary) hypertension; Z79.82 Long term (current) use of aspirin
CPT/HCPCS: 81003; 87077; 87086; 87186; 99212; G0463

== ENCOUNTER 2023-06-30 20:58 | Inpatient (IN) ==
[2023-06-30 22:37] LABS: ABS Lymphocytes 1.4 10^3/uL (1.0-4.8); ABS Monocytes 1.4 10^3/uL (0.0-0.9); ABS Neutrophils 10.8 10^3/uL (1.5-7.6); Hematocrit 33.3 % (35-45); Hemoglobin 11.6 g/dL (11.5-14.3); Lymphocyte % 10.1 %; Mean Corpuscular Hemoglobin 28.9 pg (27-33); Mean Corpuscular Hgb Conc 34.8 g/dL (31-36); Mean Platelet Volume 6.8 fL (7.5-11.2); Platelet Count 178 10^3/uL (150-450); Red Blood Count 4.01 10^6/uL (3.63-4.92); Red Cell Distribution Width 13.9 % (12-17); White Blood Count 13.5 10^3/uL (3.8-11.8)
[2023-06-30] MEDS: Albuterol HFA INHALER 8 gm MDI INH ONE (22:42)
[2023-06-30 22:46] LABS: INR 1.26 (0.83-1.13)
[2023-06-30 23:30] LABS: Albumin 3.7 g/dL (3.2-5.2); Albumin/Globulin Ratio 1.4 (1-3); C Reactive Protein 199.53 mg/L (<8.01); Calcium 8.8 mg/dL (8.6-10.3); Creatinine, Serum 0.69 mg/dL (0.51-0.95); Globulin 2.6 g/dL (2-4); Potassium 2.9 mmol/L (3.5-5.0); Total Bilirubin 0.6 mg/dL (0.2-1.0); Total Protein 6.3 g/dL (6.4-8.9); eGFR CKD-EPI 88.2 (>60)
[2023-07-01] MEDS: cefTRIAXone 1 gm/50 mL D5W 1 GM/50 ML BAG IV ONE (00:03)
[2023-07-01 00:22] LABS: High Sensitivity Troponin 1 Hr 12 pg/mL (<15)
[2023-07-01] MEDS: Iohexol 350 (CONTRAST) 500 ML MDV IV ONE (01:38)
[2023-07-01 03:17] LABS: Magnesium 2.1 mg/dL (1.9-2.7)
[2023-07-01] MEDS: Potassium Chloride LIQUID 20 MEQ/15 ML LIQUID PO ONE (03:54)
[2023-07-01] MEDS: Potassium Chlor 20 meq TAB.ER PO ONE (04:22)
[2023-07-01] MEDS: KCL 20 MEQ/100 ML IVPREMIX 20 MEQ/100 ML BAG IV SCH (04:23)
[2023-07-01] MEDS: Enoxaparin 40 MG/0.4 ML SYR SUBCUT SCH (06:30)
[2023-07-01] MEDS: Albuterol/Ipratropium NEB.SOL (2.5/0.5 MG) 3 ML NEB.SOLN INH PRN (06:56)
[2023-07-01 07:41] LABS: ABS Basophils 0.1 10^3/uL (0.0-0.1); ABS Lymphocytes 1.4 10^3/uL (1.0-4.8); ABS Monocytes 1.2 10^3/uL (0.0-0.9); ABS Neutrophils 8.9 10^3/uL (1.5-7.6); Hematocrit 33.8 % (35-45); Hemoglobin 11.6 g/dL (11.5-14.3); Lymphocyte % 12.1 %; Mean Corpuscular Hemoglobin 28.7 pg (27-33); Mean Corpuscular Hgb Conc 34.3 g/dL (31-36); Mean Corpuscular Volume 83.7 fL (80-97); Mean Platelet Volume 7.1 fL (7.5-11.2); Platelet Count 178 10^3/uL (150-450); Red Blood Count 4.03 10^6/uL (3.63-4.92); Red Cell Distribution Width 14.3 % (12-17); White Blood Count 11.5 10^3/uL (3.8-11.8)
[2023-07-01 08:07] LABS: Calcium 8.7 mg/dL (8.6-10.3); Creatinine, Serum 0.58 mg/dL (0.51-0.95); Potassium 3.7 mmol/L (3.5-5.0)
[2023-07-01] MEDS: cefTRIAXone 1 gm/50 mL D5W 1 GM/50 ML BAG IV SCH (23:18)
[2023-07-02] MEDS: Azithromycin 500 mg/250 ml NS 500 MG/250 ML BAG IVPB ONE (00:15)
[2023-07-02] MEDS: guaiFENesin/CODIENE 100mg/10mg 5 ML UDC PO PRN (21:27)
[2023-07-03 06:23] LABS: Calcium 8.5 mg/dL (8.6-10.3); Creatinine, Serum 0.44 mg/dL (0.51-0.95); Potassium 3.4 mmol/L (3.5-5.0); eGFR CKD-EPI 98.3 (>60)
[2023-07-03 10:13] LABS: ABS Lymphocytes 0.8 10^3/uL (1.0-4.8); ABS Monocytes 1.2 10^3/uL (0.0-0.9); ABS Neutrophils 7.7 10^3/uL (1.5-7.6); Eosinophil % 0.3 %; Hematocrit 36.9 % (35-45); Hemoglobin 12.4 g/dL (11.5-14.3); Lymphocyte % 8.4 %; Mean Corpuscular Hemoglobin 28.4 pg (27-33); Mean Corpuscular Hgb Conc 33.7 g/dL (31-36); Mean Corpuscular Volume 84.3 fL (80-97); Mean Platelet Volume 6.8 fL (7.5-11.2); Platelet Count 258 10^3/uL (150-450); Red Blood Count 4.38 10^6/uL (3.63-4.92); Red Cell Distribution Width 14.4 % (12-17); White Blood Count 9.8 10^3/uL (3.8-11.8)
[2023-07-03 10:42] LABS: Calcium 9.1 mg/dL (8.6-10.3); Creatinine, Serum 0.51 mg/dL (0.51-0.95); Magnesium 1.7 mg/dL (1.9-2.7); Potassium 3.5 mmol/L (3.5-5.0); eGFR CKD-EPI 94.9 (>60)
[2023-07-03] MEDS: Albuterol/Ipratropium NEB.SOL (2.5/0.5 MG) 3 ML NEB.SOLN INH SCH (14:11)
[2023-07-03] MEDS ORDERED: Albuterol/Ipratropium NEB.SOL (2.5/0.5 MG) 3 ML NEB.SOLN INH SCH (15:00)
[2023-07-03] MEDS: Benzocaine/Menthol LOZ PO PRN (20:38)
[2023-07-04 06:02] LABS: ABS Eosinophils 0.1 10^3/uL (0.0-0.5); ABS Lymphocytes 1.6 10^3/uL (1.0-4.8); ABS Monocytes 1.3 10^3/uL (0.0-0.9); ABS Neutrophils 5.1 10^3/uL (1.5-7.6); ABS Nucleated RBC 0.01 10^3/ul; Eosinophil % 1.2 %; Hematocrit 34.3 % (35-45); Hemoglobin 11.7 g/dL (11.5-14.3); Lymphocyte % 19.6 %; Mean Corpuscular Hemoglobin 28.3 pg (27-33); Mean Corpuscular Volume 83.1 fL (80-97); Mean Platelet Volume 6.7 fL (7.5-11.2); Nucleated Red Blood Cells % 0.1 %/100WBC (0.0-0.8); Platelet Count 275 10^3/uL (150-450); Red Blood Count 4.13 10^6/uL (3.63-4.92); Red Cell Distribution Width 14.6 % (12-17); White Blood Count 8.1 10^3/uL (3.8-11.8)
[2023-07-04 06:25] LABS: Creatinine, Serum 0.47 mg/dL (0.51-0.95); Magnesium 1.9 mg/dL (1.9-2.7); Potassium 3.6 mmol/L (3.5-5.0); eGFR CKD-EPI 96.8 (>60)
[2023-07-04 13:42] VITALS: BP 142/77
== END 2023-07-04 16:44 | disposition home or self-care (01) | DRG 193 ==
LOC: EDHOLD 20:58 → ED 20:58 → SUATTDRO 07-01 02:53 → MED 07-01 03:11 → SUATTDRO 07-02 08:30
PROVIDERS: ADMIT Student in an Organized Health Care Education/Training Program; ATTEND Internal Medicine